=== PATIENT | male | born 1965 | race Caucasian/White ===

== ENCOUNTER 2016-06-08 06:36 | Observation (INO) ==
--- NOTE | 2016-06-08 06:48 | Emergency Department Note ---
Lise Chiu Brittany, am scribing for, and in the presence of, Carlos Post MD 06: 48. Sejal Chiu James D, MD, personally performed the services described in this documentation, ascribed by Babs Lezama in my presence, and it is both accurate and complete 648 . Arrival - Arrival Stated Complaint: chest pain Mode of Arrival: Ambulatory Limitations: No Limitations Source: Patient, RN Notes Reviewed Time Seen by Provider: 06/08/16 06:45 - History of Present Illness HPI Narrative: This is a 50 white y/o male,who presents to the ED for further evaluation of CP. He states he was awaken by chest tightness. He states he became extremely diaphoretic, some shortness of breath. He denies any nausea. Pt reports he has had left arm numbness as well. Pt reports he is under a lot of stress secondary to his passing away on 05/28. Pt has no other complaints/pain in the ED at this time. Pt has a PMHx of HTN. Pt denies a surgical Hx. Pt denies a family medical Hx. Pt is a current every days smoker, he states he smokes 1 PPD. Onset (ago): minute(s) Consistency: constant Severity: moderate Allergies/Adverse Reactions: Allergies Allergy/AdvReac Type Severity Reaction Status Date / Time No Known Allergies Allergy Verified 09/20/15 08:02 Review of System - Review of System 12 point system: reviewed and no additional remarkable complaints except as stated - Review of System Constitutional: Present: diaphoresis Cardiovascular: Present: chest pain Gastrointestinal: Present: nausea Musculoskeletal: Present: other (Left arm numbness) Medical,Surgical,& Family Hx - Medical History Cardio: History of: Hypertension (not on meds currently) - Social History Smoking Status: Current every day smoker Exam Vital Signs: Vital Signs Temperature 98.6 F 06/08/16 06:48 Pulse Rate 59 L 06/08/16 07:30 Respiratory Rate 18 06/08/16 07:30 Blood Pressure 103/64 06/08/16 07:30 O2 Sat by Pulse Oximetry 99 06/08/16 07:30 GENERAL: This is a well-nourished well-developed white male in no apparent distress. VITAL SIGNS: Reviewed HEENT: Head is atraumatic and normocephalic. Pupils are equal round react to light. Extraocular movements are intact. Oropharynx is benign with moist mucous membranes. NECK: Neck is soft and supple without tenderness. There are no masses. There is no lymphadenopathy. LUNGS: Lungs are clear to auscultation. Chest rises symmetrically. There is no chest wall tenderness. CV: Heart is regular rate and rhythm without murmurs rubs or gallops. ABDOMEN: Abdomen is soft, nontender to palpation. There are no abdominal abnormal masses palpated. There is no organomegaly. Bowel sounds are present and active. SKIN: Skin is warm and dry. No rash. EXTREMITIES: Patient has full range of motion without tenderness. There is no pedal edema. NEUROLOGIC: Awake alert and oriented 4. Cranial nerves II through XII are grossly intact. Motor is 5 over 5 in all extremities bilaterally. Course - Consultations Consultation #1: Discussed with hospitalist. Patient will be admitted to their service. Time: 08:12 Results - Labs CBC & BMP: 06/08/16 07:12 06/08/16 07:12 Lab Results: I have reviewed the patients labs Labs: Laboratory Tests 06/08/16 07:12 Troponin I < 0.015 - EKG EKG results: interpreted by ERMD - Impressions EKG: Normal sinus rhythm with a rate of 64. Nonspecific ST-T wave changes, normal axis. - Diagnostic Findings Procedure: Chest x-ray: image reviewed by me (Hyperinflation bilaterally, no infiltrates, no pleural effusions, no cardiomegaly) Disposition Clinical Impression: Chest pain, Nicotine addiction Case discussed with: patient Disposition: Still a Patient Condition: Stable Time of Disposition: 08:12
[2016-06-08] MEDS ORDERED: ONDANSETRON 4 MG/2 ML VIAL IV STA (06:57)
[2016-06-08] MEDS ORDERED: NITROGLYCERIN 2% OINT 1 INCH/GM PACK TOP STA (06:57)
[2016-06-08] MEDS ORDERED: ALUM/MAG/SIMETH/LIDO VISC 1:1 30 ML BOTTLE PO STA (06:57)
[2016-06-08] MEDS ORDERED: MORPHINE 2 MG/1 ML SYRINGE IV STA (06:57)
[2016-06-08] MEDS ORDERED: ENOXAPARIN 100 MG/ML SYRINGE SUBCUT STA (06:57)
[2016-06-08] MEDS ORDERED: ASPIRIN 325 MG TABLET PO STA (06:57)
[2016-06-08] MEDS ORDERED: NITROGLYCERIN SL 0.4 MG TABLET SL PRN (06:57)
[2016-06-08 07:24] LABS: Basophils # 0.1 10*3/uL (0.0-0.2); Basophils % 0.9 % (0.0-0.8); Eosinophils # 0.4 10*3/uL (0.0-0.87); Hematocrit 45.1 VOL% (42.0-52.0); Immature Granulocytes % 0.6 %; Immature Granulocytes Absolute 0.04 #; Lymphocytes # 1.8 10*3/uL (1.4-4.0); Lymphocytes % 26.3 % (21.2-54.2); Mean Corpuscular HGB Conc 33.3 GM/DL (32-36); Mean Corpuscular Hemoglobin 31 PG (27-34); Mean Corpuscular Volume 94.5 FL (87-102); Mean Platelet Volume 9.1 FL (9.6-12.0); Monocytes # 0.6 10*3/uL (0.11-0.8); Monocytes % 8.9 % (1.7-12.7); Neutrophils # 3.9 10*3/uL (1.4-7.4); Neutrophils % 57.3 % (38.7-73.9); Platelet Count 278 T/CUMM (130-400); Red Blood Count 4.77 MC/CUMM (3.8-5.5); Red Cell Distribution Width 12.7 % (9.3-17.3); White Blood Count 6.9 T/CUMM (4-12)
[2016-06-08] MEDS ORDERED: ENOXAPARIN 100 MG/ML SYRINGE SUBCUT ONE (07:26)
[2016-06-08] MEDS ORDERED: NITROGLYCERIN 2% OINT 1 INCH/GM PACK TOP ONE (07:27)
[2016-06-08] MEDS ORDERED: MORPHINE 2 MG/1 ML SYRINGE ONE (07:27)
[2016-06-08] MEDS ORDERED: ASPIRIN 325 MG TABLET ONE (07:27)
[2016-06-08] MEDS ORDERED: ALUM/MAG/SIMETH/LIDO VISC 1:1 30 ML BOTTLE PO ONE (07:27)
[2016-06-08] MEDS ORDERED: ONDANSETRON 4 MG/2 ML VIAL ONE (07:27)
[2016-06-08 07:34] LABS: PT Patient Result 10.9 SECS; Partial Thromboplastin Time 27.2 SECS (0-40)
--- NOTE | 2016-06-08 07:34 | XRay Report ---
XR chest 2V Date: 06/08/2016 6:57 AM History: Chest pain Comparison: None Technique: PA and lateral chest Findings: The heart is normal in size. The lungs are clear. Unremarkable mediastinum with degenerative changes. Prior cholecystectomy. Impression: No acute cardiopulmonary pathology identified. PROCEDURE INTERPRETED AT [facility] DEPARTMENT OF RADIOLOGY Final Report Signed by: Dr. Ave Peterson
[2016-06-08 07:50] LABS: Bilirubin,Total 0.5 MG/DL (0.2-1.0); Calcium 8.6 MG/DL (8.5-10.1); Magnesium 2.3 MG/DL (1.8-2.4); Osmolality,Calculated 274.7 MOS/KG (273-304); Potassium 4.4 MMOL/L (3.5-5.1); Total Protein 6.9 G/DL (6.4-8.3)
[2016-06-08 08:19] LABS: Apearance,Urine CLEAR (Clear); Bilirubin,Urine Negative (Negative); Blood, Urine Small mg/dL (Negative); Glucose,Urine (UA) Negative (Negative); Hyaline Casts,Urine 1 /LPF (0-3); Ketones,Urine Negative (Negative); Mucus,Urine Occasional /LPF (Occasional); Nitrite,Urine Negative (Negative); Protein,Urine Negative; RBC,Urine 2 /HPF (0-4); Urine Color Yellow (Yellow); Urine Specific Gravity 1.005 (1.001-1.035); Urine Urobilinogen < 2.0 EU/DL (0.2-1.0); WBC,Urine 1 /HPF (0-6)
[2016-06-08 08:26] LABS: Barbiturates Screen,Urine Negative (Negative); Benzodiazepines Screen,Urine Positive (Negative); Cannabinoid Screen,Urine Positive (Negative); Opiate Screen,Urine Negative (Negative); Phencyclidine Screen,Urine Negative (Negative)
[2016-06-08] MEDS ORDERED: INSULIN LISPRO 100 UNIT/ML SUBCUT ONE (08:29)
[2016-06-08] MEDS ORDERED: ACETAMINOPHEN 325 MG TABLET PO PRN (08:29)
[2016-06-08] MEDS ORDERED: MORPHINE 2 MG/1 ML SYRINGE IV PRN (08:29)
[2016-06-08] MEDS ORDERED: ONDANSETRON 4 MG/2 ML VIAL IV PRN (08:29)
[2016-06-08] MEDS ORDERED: ZALEPLON 5 MG CAPSULE PO PRN (08:29)
[2016-06-08] MEDS ORDERED: MAGNESIUM SULF RIDER 2 GM in PREMIX 1 EACH IV PRN (08:29)
[2016-06-08] MEDS ORDERED: PANTOPRAZOLE 40 MG TABLET PO SCH (09:00)
[2016-06-08] MEDS ORDERED: ASPIRIN EC 325 MG TABLET PO SCH (09:00)
[2016-06-08] MEDS ORDERED: ALPRAZolam 0.5 MG TABLET PO ONE (09:05)
--- NOTE | 2016-06-08 09:12 | Hospitalist History & Physical ---
<Zac Alberto - Last Filed: 06/08/16 10:16> Assessment and Plan - Time spent with patient Time spent with patient: Greater than 30 minutes (1) Chest pain Status: Acute Assessment and plan: Cardiac enzymes negative. EKG unremarkable. Cardiac stress test today. Current Visit: Yes (2) Hypertension Status: Acute Assessment and plan: Well-controlled. Continue home meds Current Visit: Yes (3) Anxiety associated with depression Status: Acute Assessment and plan: Consider Xanax. Current Visit: Yes (4) Nicotine addiction Status: Acute Assessment and plan: Patient admits to smoking 1-1/2 packs a day. He reports a desire to quit smoking, however we feel this is not the time to quit given the abrupt loss of his and stressed that he is currently undergoing. We have ordered a nicotine patch for his stay. Current Visit: Yes History of Present Illness Chief complaint: Chest pain History of present illness: Mr. Ramos is a 50 year old male with a past medical history significant for hypertension and tobaccoism who presents to the emergency department with complaints of diaphoresis and chest pain since 4 AM this morning. The patient states that he recently found his and in their bed on the morning of May 28, 2016. He admits he has been stressed throughout this entire process. He also notes that he went to his PCP on last Sunday and was found to have a blood pressure of 185/100. He describes his chest pain as a tightness that radiated to his left arm. He also noted numbness in his left arm. He did not take anything at home, but he reports that the pain has subsided since receiving nitroglycerin paste, oxygen and morphine in the ER. Cardiac enzymes are negative. EKG is unimpressive. Patient is wanting to go home, however, given his risk factors and precipitating situation, he will be admitted for observation and undergo a cardiac stress test on today. We have consulted cardiology. If the results of his stress tests are negative, we feel it is reasonable for patient to be discharged this afternoon. Home Medications Medication Instructions Recorded Confirmed Type Metoprolol Succinate Xl [Toprol Xl] 50 mg PO BEDTIME 06/08/16 06/08/16 History clonazePAM [Clonazepam] 1 mg PO BID 06/08/16 06/08/16 History Allergies Allergy/AdvReac Type Severity Reaction Status Date / Time No Known Allergies Allergy Verified 09/20/15 08:02 Medical,Surgical,& Family Hx - Medical History Cardio: History of: Hypertension (not on meds currently) - Surgical History HEENT Surgeries: Surgical HX of: Tonsilectomy & Adenoidectomy - Social History Smoking Status: Current every day smoker Frequency of Alcohol Use: None Type of Drug Use: None - Constitutional Constitutional: Present: fatigue, stops breathing during sleep - EENT Eyes: Absent: blurry vision, loss of vision Nose, mouth and throat: Absent: headache(s), neck pain, sinus pressure, vertigo - Cardiovascular Cardiovascular: Present: chest pain at rest, diaphoresis, radiating jaw, neck or arm pain. Absent: edema, lightheadedness, orthopnea, palpitations - Respiratory Respiratory: Present: dyspnea, snoring. Absent: cough - Gastrointestinal Gastrointestinal: Absent: abdominal pain, bloating, constipation, nausea, vomiting - Genitourinary Genitourinary: Absent: difficulty urinating, dysuria - Musculoskeletal Musculoskeletal: Absent: arthralgias, back pain, joint swelling, muscle weakness - Neurological Neurological: Absent: abnormal gait, abnormal speech, dizziness, numbness, syncope - Psychiatric Psychiatric: Present: anxiety, depression - Endocrine Endocrine: Present: fatigue. Absent: cold intolerance, heat intolerance - Hematologic/Lymphatic Hematologic/Lymphatic: Absent: easy bleeding, easy bruising Exam - Constitutional Vitals: Period Temp Pulse Resp BP Sys/[place] Pulse Ox Last 24 Hr 98.6 F-98.6 F 59-73 18-18 103-120/64-80 97-99 Exam: General appearance: normal weight, moderate distress - Head Head exam: Present: normocephalic, atraumatic - Eye Eye exam: Present: EOMI. Absent: conjunctival injection, nystagmus Pupils: Present: AARTI, normal accommodation - ENT ENT exam: Present: normal exam, normal external ear exam - Neck Neck exam: Present: normal inspection. Absent: lymphadenopathy, tenderness, thyromegaly - Respiratory Respiratory exam: Present: clear to auscultation bilaterally. Absent: rales, rhonchi, wheezes - Cardiovascular Cardiovascular exam: Present: regular rate and rhythm. Absent: carotid bruit, gallop, rubs - GI/Abdominal GI/Abdominal exam: Present: normal bowel sounds. Absent: ascites, distended, mass - Extremities Exam Extremities exam: Present: normal inspection, normal capillary refill. 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, warm, dry Results - Labs CBC & BMP: 06/08/16 07:12 06/08/16 07:12 Lab Results: I have reviewed the past 24 hour labs - EKG EKG results: interpreted by MAKSIM <Doris Houston - Last Filed: 06/08/16 13:01> Assessment and Plan (1) Chest pain Status: Resolved Assessment and plan: stress test done await interpretation, choles numbers are excellent Current Visit: Yes (2) Nicotine addiction Status: Chronic Current Visit: Yes (3) Hypertension Status: Chronic Assessment and plan: cont metoprolol Current Visit: Yes (4) Anxiety associated with depression Status: Acute Assessment and plan: cont xanax prn anxiety and prozac for depression Current Visit: Yes History of Present Illness History of present illness: Mr. Ramos is a 50 year old male seen and examined. Hospital course reviewed and edited. Patient wanting to leave but have encouraged him to stay and he has completed his stress test but awaiting reading. Needs to stop smoking but not now due to stress from wifes passing. I will give him an antidepressant and antianxiety pill to help. Medical,Surgical,& Family Hx - Family History Family History: Reports;: Family Heart Disease Denies;: Family Diabetes, Family Hypertension - Social History Type of Drug Use: Marijuana Marital Status: Single Lives With:: Alone - Constitutional Constitutional: Present: weight loss. Absent: headache(s) Exam - Constitutional Vitals: Period Temp Pulse Resp BP Sys/[place] Pulse Ox Last 24 Hr 98.1 F-98.1 F 57-71 17-18 93-132/64-77 97-99 Results - Labs CBC & BMP: 06/08/16 07:12 06/08/16 07:12 - EKG EKG shows: sinus rhythm (no st changes ) - Diagnostic Findings Procedure: Chest x-ray: report reviewed by me (nothing acute)
[2016-06-08 09:48] LABS: Risk Ratio 2.2
[2016-06-08] MEDS ORDERED: REGADENOSON 0.4 MG/5 ML SYRINGE IV ONE (10:34)
[2016-06-08] MEDS ORDERED: NICOTINE 21 MG/24 HR PATCH TRANSDERM SCH (11:00)
--- NOTE | 2016-06-08 11:00 | Cardiology Consult Note ---
<Roxy Lane E - Last Filed: 06/08/16 10:52> Assessment and Plan - Time spent with patient Time spent with patient: Greater than 30 minutes Time spent discussing smoking cessation with patient: more than 10 minutes (1) Marijuana use Status: Chronic Assessment and plan: See plan of care listed below Current Visit: Yes (2) Chest pain Status: Resolved Assessment and plan: See plan of care listed below Current Visit: Yes (3) Nicotine addiction Status: Chronic Assessment and plan: See plan of care listed below Current Visit: Yes (4) Hypertension Status: Chronic Assessment and plan: See plan of care listed below Current Visit: Yes (5) Anxiety associated with depression Status: Acute Assessment and plan: See plan of care listed below Current Visit: Yes History of Present Illness - Data of Consult Patient: new to practice Consult date: 06/08/16 Requesting Physician: Doris Houston Primary care physician: Abelino Rosario - Consult Narrative Reason for consult: chest pain History of present illness: 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 ALAN PCP: DR. ABELINO ROSARIO Mr. Ramos is a 50 year old male not previously followed by cardiology. Risk factors include: Hypertension, tobaccoism, marijuana use and sedentary lifestyle. Patient presented to the emergency department at [facility] this morning after experiencing a burning sensation in his mid chest around 0400. He then began to feel like a tightening in the center of his chest. He felt clammy and felt as if he should be evaluated in the emergency department. He can identify no aggravating factors nor any alleviating factors. He rates the discomfort as a 7 on a scale of 1-10. He is chest pain-free. He states that he works and works aggressively and can perform his activities without chest pain, heaviness or tightness. His cardiac biomarkers are negative. His EKG is unremarkable. He has been under a lot of stress. He woke May 28, 2016 to find his . He tells me he has been mourning. He has had higher blood pressures over the past several weeks. He recently saw Dr. Abelino Rosario at the end of last week. His blood pressure was noted to be 180/100. He tells me his medication was increased at that time but he has not rechecked his blood pressure since. ASSESSMENT/PLAN: 1. CHEST PAIN -n.p.o. for stress testing. Will have Dr. Cyrus Alan read, interpreted and advise. Await additional recommendations. Should the patient stress test being negative, he may be safe for discharge and will give him an appointment to see Dr. Alan in 2-3 weeks. He may benefit from a PPI as well. 2. HYPERTENSION -poor control recently. Will adjust medications accordingly during the hospital stay 3. TOBACCOISM -reinforced the merits of tobacco cessation for greater than 10 minutes today. 4. MARIJUANA ABUSE -reinforced the merits of marijuana cessation for greater than 10 minutes today. CC: - Home Medications and Allergies Home Medications: Home Medications Medication Instructions Recorded Confirmed Type Metoprolol Succinate Xl [Toprol Xl] 50 mg PO BEDTIME 06/08/16 06/08/16 History Venlafaxine Xr [Effexor XR] 37.5 mg PO DAILY #30 capsule 06/08/16 Rx clonazePAM [Clonazepam] 1 mg PO BID 06/08/16 06/08/16 History Allergies/Adverse Reactions: Allergies Allergy/AdvReac Type Severity Reaction Status Date / Time No Known Allergies Allergy Verified 09/20/15 08:02 Review of systems: REVIEW OF SYSTEMS: - Constitutional Constitutional: Present: Fatigue. Difficulty sleeping. Absent: syncope, anorexia, night sweats - EENT Eyes: Absent: blurry vision, loss of vision, diplopia Ears: Absent: decreased hearing, ear pain, ear discharge - Cardiovascular Cardiovascular: Denies chest pain with exertion, edema or palpitations. Absent : chest pain with deep breath - Respiratory Respiratory: Denies SWEET, cough. Absent: wheezing, hemoptysis, change in phlegm color - Gastrointestinal Gastrointestinal: Denies constipation. Absent: abdominal pain, hematemesis, hematochezia, melena, change in bowel habits, nausea - Genitourinary Genitourinary: Absent: difficulty urinating, dysuria, urinary hesitancy, flank pain - Musculoskeletal Musculoskeletal: Present: back pain Absent: joint swelling, muscle cramps, muscle weakness - Neurological Neurological: Present: Poor gait without frequent falls. Denies dizziness. - Psychiatric Psychiatric: Acknowledges recent anxiety, depression, difficulty concentrating - Endocrine Endocrine: Present: fatigue. Absent: cold intolerance, heat intolerance, polyuria, polyphagia, polydipsia - Hematologic/Lymphatic Hematologic/Lymphatic: Present: easy bruising. Absent: easy bleeding -Integumentary Integumentary: Absent: lesions, rashes, skin breakdown Medical,Surgical,& Family Hx - Medical History Cardio: History of: Hypertension (not on meds currently) No history of: CAD, [place] Psychological: History of: Anxiety Disorders Endocrine: No history of: Diabetes Mellitus (NIDDM), Dyslipidemia Gastrointestinal: No history of: GERD Hematology: No history of: Anemia - Surgical History HEENT Surgeries: Surgical HX of: Tonsilectomy & Adenoidectomy - Social History Smoking Status: Current every day smoker Have you smoked in the last 12 months: Yes Time spent discussing smoking cessation with patient: more than 10 minutes Frequency of Alcohol Use: None Type of Drug Use: None Marital Status: Lives With:: Alone Functional capacity: independent ambulation Physical Examination Vital Signs Temp Pulse Resp BP Pulse Ox 98.6 F 73 18 119/80 97 06/08/16 06:48 06/08/16 06:48 06/08/16 06:48 06/08/16 06:48 06/08/16 06:48 General: [Appears well with no apparent distress.] [Pleasant and cooperative. ] [Appears comfortable.] HEENT: [PERRL, normocephalic, atraumatic. Mucous membranes moist. No jaundice noted. Conjunctiva moist and clear, sclerae anicteric] Neck: No JVD/HJR, no thyromegaly or lymphadenopathy noted. No carotid bruit appreciated Cardiac: [Regular rate and rhythm.] [No murmur rub or gallop.] Lungs: [Clear to auscultation without accessory muscle use to assist the respiratory pattern.] Not requiring oxygen. Abdomen: Soft, bowel sounds normoactive. Nontender and nondistended. No abdominal bruit or thrill noted. No masses noted. Musculoskeletal: No fluid collection. Decreased range of motion is noted. Extremities: No clubbing, cyanosis noted. [ No edema noted.] Upper extremity pulses 2+. Lower extremity pulses 2+. Capillary refill less than 3 seconds. Skin: No unusual lesions or rashes. No skin breakdown appreciated. Neuro: Awake, alert and oriented 3. Moves all extremities well without hemiparesis or paralysis. No essential tremor is appreciated. Result/EKG - Labs CBC & BMP: 06/08/16 07:12 06/08/16 07:12 Lab Results: I have reviewed the past 24 hour labs Labs: Laboratory Results - last 24 hr 06/08/16 06/08/16 06/08/16 07:12 07:12 07:12 WBC 6.9 RBC 4.77 Hgb 15.0 Hct 45.1 MCV 94.5 MCH 31 MCHC 33.3 RDW 12.7 Plt Count 278 MPV 9.1 L Neut % (Auto) 57.3 Lymph % (Auto) 26.3 [place] % (Auto) 8.9 Eos % (Auto) 6.0 Baso % (Auto) 0.9 H Neut # (Auto) 3.9 Lymph # (Auto) 1.8 [place] # (Auto) 0.6 Eos # (Auto) 0.4 Baso # (Auto) 0.1 Immature Gran % 0.6 Nucleated RBC % 0.0 Immature Gran # 0.04 Nucleated RBCs # 0.00 INR 1.0 PT Patient/Control Mix 10.9 Circ Anticoag PTT 27.2 Sodium 138 Potassium 4.4 Chloride 105 Carbon Dioxide 26 Anion Gap 11.4 BUN 8 Creatinine 1.00 GFR Calculation 86 BUN/Creatinine Ratio 8.00 Glucose 129 H Calculated Osmolality 274.7 Calcium 8.6 Magnesium 2.3 Total Bilirubin 0.50 AST 38 H ALT 43 Alkaline Phosphatase 65 Troponin I Total Protein 6.9 Albumin 4.0 Globulin 2.9 Albumin/Globulin Ratio 1.3 Triglycerides Cholesterol LDL Cholesterol VLDL Cholesterol HDL Cholesterol Heart Disease Risk Ratio Urine Color Urine Appearance Urine pH Ur Specific [place] Urine Protein Urine Glucose (UA) Urine Ketones Urine Blood Urine Nitrate Urine Bilirubin Urine Urobilinogen Urine Leukocytes Urine RBC Urine WBC Hyaline Casts Urine Mucus Ur Culture Indicated? Urine Opiates Screen Ur Barbiturates Screen Ur Phencyclidine Scrn U Amphetamine/Methamph U Benzodiazepines Scrn U Cocaine Metab Screen U Cannabinoids Screen 06/08/16 06/08/16 06/08/16 07:12 07:12 08:06 WBC RBC Hgb Hct MCV MCH MCHC RDW Plt Count MPV Neut % (Auto) Lymph % (Auto) [place] % (Auto) Eos % (Auto) Baso % (Auto) Neut # (Auto) Lymph # (Auto) [place] # (Auto) Eos # (Auto) Baso # (Auto) Immature Gran % Nucleated RBC % Immature Gran # Nucleated RBCs # INR PT Patient/Control Mix Circ Anticoag PTT Sodium Potassium Chloride Carbon Dioxide Anion Gap BUN Creatinine GFR Calculation BUN/Creatinine Ratio Glucose Calculated Osmolality Calcium Magnesium Total Bilirubin AST ALT Alkaline Phosphatase Troponin I < 0.015 Total Protein Albumin Globulin Albumin/Globulin Ratio Triglycerides 65 Cholesterol 99 LDL Cholesterol 54.0 VLDL Cholesterol 13.0 HDL Cholesterol 45 Heart Disease Risk Ratio 2.20 Urine Color Yellow Urine Appearance Clear Urine pH 6.0 Ur Specific [place] 1.005 Urine Protein Negative Urine Glucose (UA) Negative Urine Ketones Negative Urine Blood Small Urine Nitrate Negative Urine Bilirubin Negative Urine Urobilinogen < 2.0 H Urine Leukocytes Negative Urine RBC 2 Urine WBC 1 Hyaline Casts 1 Urine Mucus Occasional Ur Culture Indicated? Not indicated Urine Opiates Screen Ur Barbiturates Screen Ur Phencyclidine Scrn U Amphetamine/Methamph U Benzodiazepines Scrn U Cocaine Metab Screen U Cannabinoids Screen 06/08/16 08:06 WBC RBC Hgb Hct MCV MCH MCHC RDW Plt Count MPV Neut % (Auto) Lymph % (Auto) [place] % (Auto) Eos % (Auto) Baso % (Auto) Neut # (Auto) Lymph # (Auto) [place] # (Auto) Eos # (Auto) Baso # (Auto) Immature Gran % Nucleated RBC % Immature Gran # Nucleated RBCs # INR PT Patient/Control Mix Circ Anticoag PTT Sodium Potassium Chloride Carbon Dioxide Anion Gap BUN Creatinine GFR Calculation BUN/Creatinine Ratio Glucose Calculated Osmolality Calcium Magnesium Total Bilirubin AST ALT Alkaline Phosphatase Troponin I Total Protein Albumin Globulin Albumin/Globulin Ratio Triglycerides Cholesterol LDL Cholesterol VLDL Cholesterol HDL Cholesterol Heart Disease Risk Ratio Urine Color Urine Appearance Urine pH Ur Specific [place] Urine Protein Urine Glucose (UA) Urine Ketones Urine Blood Urine Nitrate Urine Bilirubin Urine Urobilinogen Urine Leukocytes Urine RBC Urine WBC Hyaline Casts Urine Mucus Ur Culture Indicated? Urine Opiates Screen Negative Ur Barbiturates Screen Negative Ur Phencyclidine Scrn Negative U Amphetamine/Methamph Negative U Benzodiazepines Scrn Positive H U Cocaine Metab Screen Negative U Cannabinoids Screen Positive H - Diagnostic Findings Procedure: Chest x-ray: report reviewed by me - EKG EKG results: interpreted by me EKG shows: sinus rhythm <Ezra Torres - Last Filed: 06/08/16 14:54> History of Present Illness - Consult Narrative History of present illness: Cardiology addendum. Patient examined and chart reviewed. Atypical chest pain but does have multiple risk factors. Active smoker. Hypertension. Negative troponin. EKG unremarkable. Decreased breath sounds but clear. Regular rhythm. No murmur or gallop. Abdomen benign. Plan Lexiscan cardiac stress test No smoking Risk factor modification CC: Doris Houston MD Physical Examination Vital Signs Temp Pulse Resp BP Pulse Ox 98.6 F 73 18 119/80 97 06/08/16 06:48 06/08/16 06:48 06/08/16 06:48 06/08/16 06:48 06/08/16 06:48 Result/EKG - Labs CBC & BMP: 06/08/16 07:12 06/08/16 07:12 Labs: Laboratory Results - last 24 hr 06/08/16 06/08/16 11:42 Unknown Hemoglobin A1c 5.5 Troponin I < 0.015
[2016-06-08] MEDS ORDERED: ALPRAZolam 0.5 MG TABLET ONE (11:13)
[2016-06-08] MEDS ORDERED: PANTOPRAZOLE 40 MG TABLET PO ONE (11:14)
[2016-06-08 11:38] VITALS: BP 132/72
--- NOTE | 2016-06-08 13:06 | Discharge Summary ---
Hospital Course - Hospital Course Hospital Course: 50-year-old male with a history of hypertension admitted to the emergency room today with complaints of chest pressure. Patient reports associated shortness of breath and diaphoresis. He has recently lost his and is been devastated. He is having a lot of anxiety and depression and did not want to stay in the hospital. He is currently on clonazepam at home for anxiety and has tried several things in the past and been unsuccessful for depression. He is tried SSRIs without success I will try him on a low-dose of Effexor and see if this helps. Serial cardiac enzymes are negative and his cholesterol was excellent. His blood sugars were mildly elevated and hemoglobin A1c was ordered but is pending at time of dictation. Serial cardiac enzymes are negative and his EKG was negative. He had an immediate stress test and we are waiting for the results if negative patient will go home today. Stress test negative discharge home - Time spent with patient Time with patient DS: Less than 30 minutes (25 min) Diagnosis - Discharge Diagnosis (1) Chest pain Status: Resolved (2) Nicotine addiction Status: Chronic (3) Hypertension Status: Chronic (4) Anxiety associated with depression Status: Acute Discharge Plan - Discharge Data Disposition: Disch To Home/Self Care Condition at Discharge: Stable Discharge Diet: heart healthy Activity: resume usual activities as tolerated Hygiene: no restrictions Weight Bearing at Discharge: full weight bearing - Discharge Medications New Venlafaxine Xr [Effexor XR] 37.5 mg PO DAILY #30 capsule Continue Metoprolol Succinate Xl [Toprol Xl] 50 mg PO BEDTIME clonazePAM [Clonazepam] 1 mg PO BID - Follow Up or Referral - Forms/Instructions Additional Discharge Instructions: discharge home if stress test negative Exam - Constitutional Vitals: Period Temp Pulse Resp BP Sys/[place] Pulse Ox Last 24 Hr 98.1 F-98.1 F 57-71 17-18 93-132/64-77 97-99 General appearance: normal weight, no acute distress - Respiratory Respiratory exam: Present: clear to auscultation bilaterally. Absent: rhonchi, wheezes - Cardiovascular Cardiovascular exam: Present: regular rate and rhythm. Absent: systolic murmur - GI/Abdominal GI/Abdominal exam: Present: normal bowel sounds, soft. Absent: tenderness Discharge Results Procedures and tests throughout hospitalization: Pending Orders 06/08/16 09:02 NM oscar perf SPECT rest or str Routine 06/08/16 14:30 Troponin I Only Q3H Labs on day of discharge: Labs from last 24 hours 06/08/16 11:42 Troponin I < 0.015 DS: Provider Date of admission: 06/08/16 08:16 Primary care physician: . No PCP Attending physician on admission: Doris Houston MD Consults: 06/08/16 08:44 Consult to Pharmacy [CONS] Routine Reason for Pharmacy Consult: Adjust Meds Renal Funct Discharging clinician: Doris Houston MD
--- NOTE | 2016-06-08 14:29 | EKG Report ---
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
--- NOTE | 2016-06-08 15:18 | Nuclear Medicine Report ---
LEXISCAN CARDIOLITE GATED SPECT PERFUSION STUDY Date: 06/08/2016 PROCEDURE: LEXISCAN CARDIOLITE GATED SPECT PERFUSION STUDY. INITIAL IMPRESSION: 1. A 50-YEAR-OLD MALE WITH ATYPICAL CHEST PAIN. 2. ABNORMAL EKG. FINAL IMPRESSION: NORMAL LEXISCAN CARDIOLITE GATED SPECT PERFUSION STUDY. I. DESCRIPTION OF PROCEDURE: The patient received 10.0 mCi of Technetium-99m Cardiolite IV and res t imaging was obtained in a routine manner 20 minutes later. The patient then walked on a low-level treadmill and received 0.4 mg IV Lexiscan followed by 30.0 mCi of Technetium-99m Cardiolite IV and pharmacologic stress imaging was obtained in the routine manner 20 minutes later. Serial electrocar diograms were performed. The initial blood pressure was 119/81 and was 110/65 immediately post Margot scan. The peak heart rate was 98. II. RESULTS: The patient had no chest pain or arrhythmias and tolerated Lexiscan walk well. The r esting EKG demonstrates normal sinus rhythm with poor R-wave progression across precordium and ST-T wave changes. With pharmacologic stress, no diagnostic EKG changes occurred. No arrhythmias. Tomographic imaging demonstrates homogeneous uptake of radioisotope in all segments. There is no ev idence for ischemia or scar. Gated SPECT imaging demonstrates normal wall motion and thickening in all segments. The calculated ejection fraction is 54%. III. FINAL IMPRESSION: 1. CLINICALLY AND ELECTROGRAPHICALLY NEGATIVE. 2. SCINTIGRAPHICALLY NORMAL PERFUSION STUDY. IV. DISPOSITION: The patient should be reassured regarding the lack of any evidence for significa nt coronary artery disease at this time. He had no chest pain or diagnostic EKG changes, and tomogr aphic imaging is normal. In addition, ventricular function is preserved with ejection fraction of 5 4%. This is a low-risk scan. Continued medical therapy and risk-factor modification recommended. Procedure performed and interpreted at [facility] Department of Radiology.
--- NOTE | 2016-06-09 07:54 | EKG Report ---
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
== END 2016-06-08 14:50 | disposition home or self-care (01) ==
LOC: N.ED 06:36 → N.EDINP 06:36 → N.TELES 11:31
PROVIDERS: ADMIT Internal Medicine; ATTEND Internal Medicine